=== PATIENT | male | born 1995 | race African-American/Black ===

== ENCOUNTER 2018-09-21 20:31 | Emergency (ER) | payer OTHER ==
[2018-09-21] MEDS ORDERED: Acetaminophen 500 MG TAB ONE (21:18)
[2018-09-21] MEDS ORDERED: Ibuprofen 800 MG TAB ONE (21:18)
== END 2018-09-21 22:41 | disposition home or self-care (01) ==
LOC: ERS 20:31
DX: J02.9 Acute pharyngitis, unspecified (principal)
CPT/HCPCS: 87081; 87430; 87804; 99283